=== PATIENT | female | born 1960 | race Caucasian/White ===

== ENCOUNTER → 2018-11-22 | Outpatient (CLI) | payer BC | END | disposition home or self-care (01) | LOC: RAH 10:42 | PROVIDERS: ATTEND Internal Medicine Endocrinology, Diabetes & Metabolism | DX: E04.1 Nontoxic single thyroid nodule (principal) | CPT/HCPCS: 76536 ==

== ENCOUNTER → 2019-04-04 | Outpatient (CLI) | payer BC | END | disposition home or self-care (01) | LOC: RAH 12:31 | PROVIDERS: ATTEND Internal Medicine Critical Care Medicine | DX: Z12.31 Encounter for screening mammogram for malignant neoplasm of breast (principal) | CPT/HCPCS: 77067 ==

== ENCOUNTER → 2019-04-11 | Outpatient (CLI) | payer BC | END | disposition home or self-care (01) | LOC: RAH 14:03 | PROVIDERS: ATTEND Internal Medicine Critical Care Medicine | DX: N63.20 Unspecified lump in the left breast, unspecified quadrant (principal) | CPT/HCPCS: 76641 ==

== ENCOUNTER → 2019-08-21 | Outpatient (CLI) | payer BC | END | disposition home or self-care (01) | LOC: RAH 13:01 | PROVIDERS: ATTEND Internal Medicine Endocrinology, Diabetes & Metabolism | DX: E04.2 Nontoxic multinodular goiter (principal) | CPT/HCPCS: 76536 ==

== ENCOUNTER → 2020-06-16 | Outpatient (CLI) | payer BC, OTHER | END | disposition home or self-care (01) | LOC: RAH 14:12 | PROVIDERS: ATTEND Internal Medicine Critical Care Medicine | DX: Z12.31 Encounter for screening mammogram for malignant neoplasm of breast (principal) | CPT/HCPCS: 77067 ==

== ENCOUNTER → 2020-08-14 | Outpatient (CLI) | payer OTHER | END | disposition home or self-care (01) | LOC: RAH 10:01 | PROVIDERS: ATTEND Internal Medicine Endocrinology, Diabetes & Metabolism | DX: E04.2 Nontoxic multinodular goiter (principal) | CPT/HCPCS: 76536 ==

== ENCOUNTER → 2022-08-27 | Outpatient (CLI) | payer BC | END | disposition home or self-care (01) | LOC: RAH 15:13 | PROVIDERS: ATTEND Internal Medicine Critical Care Medicine | DX: Z12.31 Encounter for screening mammogram for malignant neoplasm of breast (principal) | CPT/HCPCS: 77067 ==

== ENCOUNTER 2023-02-25 12:25 | Emergency (ER) | payer BC, OTHER ==
[~2023-02-25] VITALS: Ht 152.4 cm; Wt 77.1 kg
[2023-02-25] MEDS ORDERED: LIDOCAINE 1%-EPI 1:100,000 20 ML VIAL IJ SCH (14:00)
[2023-02-25] MEDS ORDERED: TRAM50TA4 PO (15:53)
[2023-02-25] MEDS ORDERED: NAPR-1180 PO (15:53)
[2023-02-25] MEDS ORDERED: DIPH,PERTUSS(ACELL),TET VAC/PF 0.5 ML VIAL IM ONE (16:00)
[2023-02-25] MEDS ORDERED: TRAMADOL HCL 50 MG TABLET ONE (16:59)
[2023-02-25] MEDS ORDERED: TRAMADOL HCL 50 MG TABLET PO ONE (17:00)
[2023-02-25 17:12] VITALS: BP 136/66
== END 2023-02-25 17:32 | disposition home or self-care (01) ==
LOC: EDH 12:25
DX: S01.01XA Laceration without foreign body of scalp, initial encounter (principal); S70.311A Abrasion, right thigh, initial encounter; I10 Essential (primary) hypertension; E03.9 Hypothyroidism, unspecified; E78.00 Pure hypercholesterolemia, unspecified; Z98.890 Other specified postprocedural states; Z88.5 Allergy status to narcotic agent; W18.39XA Other fall on same level, initial encounter; Y93.89 Activity, other specified; Y92.89 Other specified places as the place of occurrence of the external cause; Y99.8 Other external cause status
CPT/HCPCS: 99284; 12034; 70450; 90715; 90471; J3490; 96372

== ENCOUNTER → 2024-04-04 | Outpatient (CLI) | payer OTHER ==
[~2024-04-04] MED LIST: NAPR-1180 PO; TRAM50TA4 PO
== END | disposition home or self-care (01) ==
LOC: RAH 13:53
PROVIDERS: ATTEND Urology
DX: N20.0 Calculus of kidney (principal); Z96.89 Presence of other specified functional implants
CPT/HCPCS: 74018; 76100

== ENCOUNTER → 2024-10-16 | Outpatient (CLI) | payer OTHER ==
--- NOTE | 2024-10-16 14:49 | HMCIMG ---
BONE DENSITOMETRY: HISTORY: Other specified disorders of bone density and structure, other site Comparison: None FINDINGS: BMD measured at AP spine L1-L4 is 0.994 g/cm2 with a T-score of -0.5 Bone density is up to 10% below young normal. This patient is considered normal according to WHO criteria. Fracture risk is low. BMD measured at Left Femoral Neck is 0.664 g/cm2 with a T-score of -1.7 Bone density is between 10 and 25% below young normal. This patient is considered osteopenic. Fracture risk is moderate. BMD measured at Left Femoral Total is 0.927 g/cm2 with a T-score of -0.1 Bone density is up to 10% below young normal. This patient is considered normal according to WHO criteria. Fracture risk is low. IMPRESSION: Osteopenia. Treatment and follow-up recommended.
== END | disposition home or self-care (01) ==
LOC: RAH 13:32
PROVIDERS: ATTEND Internal Medicine Critical Care Medicine
DX: M85.88 Other specified disorders of bone density and structure, other site (principal)
CPT/HCPCS: 77080

== ENCOUNTER → 2025-01-07 | Outpatient (CLI) | payer OTHER ==
--- NOTE | 2025-01-07 12:27 | HMCIMG ---
US THYROID/NECK HISTORY: Goiter COMPARISON: None TECHNIQUE: Thyroid ultrasound study was performed. FINDINGS: Right thyroid lobe measures 4.6 x 2.4 x 1.7 cm. Left thyroid lobe measures 4.7 x 2.3 x 1.6 cm. Thyroid gland is heterogeneous with nodular appearance. There is right lower pole thyroid nodule measuring 4 x 3 x 5 mm. There is left lower pole thyroid nodule measuring 6 x 3 x 4 mm. IMPRESSION: 1. Small bilateral thyroid nodules. Six-month follow-up study is recommended.
== END | disposition home or self-care (01) ==
LOC: RAH 11:18
PROVIDERS: ATTEND Internal Medicine Endocrinology, Diabetes & Metabolism
DX: E04.2 Nontoxic multinodular goiter (principal)
CPT/HCPCS: 76536

== ENCOUNTER → 2025-05-16 | Outpatient (CLI) | payer OTHER | END | disposition home or self-care (01) | LOC: RAH 11:22 | PROVIDERS: ATTEND Internal Medicine Critical Care Medicine | DX: Z12.31 Encounter for screening mammogram for malignant neoplasm of breast (principal) | CPT/HCPCS: 77067 ==